=== PATIENT | male | born 1950 | race Caucasian/White ===

== ENCOUNTER 2018-06-25 09:21 | Emergency (ER) | payer MEDICARE, OTHER ==
[~2018-06-25] VITALS: Ht 182.9 cm; Wt 104.0 kg
[2018-06-25 09:32] VITALS: BP 146/76
[2018-06-25] MEDS ORDERED: ATORVASTATIN PO (10:00)
[2018-06-25] MEDS ORDERED: DIPHENHYDRAMINE 25 MG CAPSULE ONE (10:12)
[2018-06-25] MEDS ORDERED: DIPHENHYDRAMINE 25 MG CAPSULE PO ONE (11:00)
== END 2018-06-25 11:04 | disposition home or self-care (01) ==
LOC: ED 11:02
DX: T78.40XA Allergy, unspecified, initial encounter (principal); J98.01 Acute bronchospasm; R21 Rash and other nonspecific skin eruption; X58.XXXA Exposure to other specified factors, initial encounter
CPT/HCPCS: 99283; J7512; Q0163

== ENCOUNTER 2019-08-15 08:51 | Emergency (ER) | payer MEDICARE, OTHER ==
[~2019-08-15] VITALS: Ht 182.9 cm; Wt 104.1 kg
[~2019-08-15 08:51] MED LIST: ASPI81TA45 PO; ATOR20TA37 PO; ATORVASTATIN PO; BUTA-177 PO; DICL75TA3 PO; GABA300C PO; GUAI100L11 PO; IBUP-1223 PO; METH750T2 PO; TAMS-11 PO
[2019-08-15 08:52] VITALS: BP 146/87
--- NOTE | 2019-08-15 09:35 | NUR ---
PT SEEN AND EXAMINED BY EDPA, RN GIVEN DC ORDERS. THIS RN WENT TO DISCHARGE PT, PT WAS NOT IN ROOM, GOWN FOUND ON BED. RN UNABLE TO COMPLETE CLINICAL SCREEN AND DISCHARGE EDUCATION PT WALKED SELF TO DISCHARGE BEFORE RN ABLE TO COMPLETE THESE TASKS. EDPA NOTIFIED.
== END 2019-08-15 09:36 | disposition home or self-care (01) ==
LOC: ED 09:20
DX: J31.0 Chronic rhinitis (principal)
CPT/HCPCS: 99283

== ENCOUNTER → 2019-11-10 | Outpatient (CLI) | payer MEDICARE, OTHER ==
[~2019-11-10] MED LIST changes: +ACET-1600 PO; +OMEP40CA42 PO
[2019-11-10 13:21] LABS: BASOPHILS # (AUTO) 0.05 x10^3/uL (0-0.1); BASOPHILS % (AUTO) 1 % (0-1); EOSINOPHILS # (AUTO) 0.11 x10^3/uL (0-0.4); EOSINOPHILS % (AUTO) 2 % (1-7); LYMPHOCYTES # (AUTO) 1.94 x10^3/uL (1-3.4); LYMPHOCYTES % (AUTO) 33 % (22-44); MD NO; MEAN CORPUSCULAR HEMOGLOBIN 31.7 pg (27.5-34.5); MEAN CORPUSCULAR HGB CONC 33.5 g/dL (33.2-36.2); MEAN CORPUSCULAR VOLUME 94.7 fL (81-97); MEAN PLATELET VOLUME 8.3 fL (7.4-10.4); MONOCYTES # (AUTO) 0.42 x10^3/uL (0.2-0.8); MONOCYTES % (AUTO) 7 % (2-9); NEUTROPHILS # (AUTO) 3.29 x10^3/uL (1.8-6.8); NEUTROPHILS % (AUTO) 57 % (42-75); PLATELET COUNT 208 x10^3/uL (130-400); RED CELL DISTRIBUTION WIDTH 13.5 % (9.4-14.8)
[2019-11-10 13:24] LABS: MICROSCOPIC NOT IND
[2019-11-10 13:28] LABS: INTERNATIONAL NORMALIZED RATIO 1.07 (0.93-1.1); PROTHROMBIN TIME 11.3 Seconds (9.6-11.5)
[2019-11-10 13:31] LABS: ALANINE AMINOTRANSFERASE 25 U/L (12-78); ALBUMIN 3.9 g/dL (3.4-5.0); ANION GAP 6 mmol/L (5-15); CALCIUM 8.7 mg/dL (8.5-10.1); CHLORIDE 109 mmol/L (98-107); CREATININE 1.17 mg/dL (0.7-1.3)
[2019-11-10 13:33] LABS: ALKALINE PHOSPHATASE 100 U/L (45-117); BILIRUBIN,TOTAL 0.8 mg/dL (0.2-1.0); TOTAL PROTEIN 7.2 g/dL (6.4-8.2)
== END | disposition home or self-care (01) ==
LOC: STAR 12:07
PROVIDERS: ATTEND Neurological Surgery
DX: Z01.810 Encounter for preprocedural cardiovascular examination (principal); Z01.811 Encounter for preprocedural respiratory examination; Z01.812 Encounter for preprocedural laboratory examination; M43.06 Spondylolysis, lumbar region; R94.31 Abnormal electrocardiogram [ECG] [EKG]; R79.1 Abnormal coagulation profile; R82.90 Unspecified abnormal findings in urine
CPT/HCPCS: 36415; 80053; 81003; 85025; 85610; 85730; 93005; U0001-CS

== ENCOUNTER → 2019-11-10 | Outpatient (CLI) | payer MEDICARE, OTHER | END | disposition home or self-care (01) | LOC: RAD 13:46 | PROVIDERS: ATTEND Neurological Surgery | DX: M48.061 Spinal stenosis, lumbar region without neurogenic claudication (principal); M43.06 Spondylolysis, lumbar region | CPT/HCPCS: 72131 ==

== ENCOUNTER 2020-11-11 20:06 | Emergency (ER) | payer MEDICARE, OTHER ==
[~2020-11-11] VITALS: Ht 182.9 cm; Wt 106.8 kg
[~2020-11-11 20:06] MED LIST changes: +METH-640 PO; -METH750T2 PO; +METH750T87 PO; -OMEP40CA42 PO; +OMEP40CA8 PO; +OXYC5CAP2 PO
--- NOTE | 2020-11-11 20:23 | NUR ---
TASK RN: THIS IS A 70M THAT COMES IN POST L TOTAL KNEE (11/07/20). PT C/O INC SWELLING AND PAIN AND WARM TO TOUCH. PT RESTING ON GURNEY AT BEDSIDE
[2020-11-11] MEDS ORDERED: MORPHINE SULFATE 4 MG/ML, 1ML ONE (20:59)
[2020-11-11] MEDS ORDERED: ONDANSETRON 2MG/ML, 2ML ONE (20:59)
[2020-11-11] MEDS ORDERED: SODIUM CHLORIDE FLUSH 10ML SYR IVF ONE (21:00)
[2020-11-11] MEDS ORDERED: MORPHINE SULFATE 4 MG/ML, 1ML IVPush PRN (21:00)
[2020-11-11] MEDS ORDERED: ONDANSETRON 2MG/ML, 2ML IVPush ONE (21:00)
--- NOTE | 2020-11-11 21:05 | NUR ---
PIV PLACED, LABS DRAWN AND COLLECTED BY QUALITY CONTROL ENGINEER. MEDS ADMIN PER AUG. PT GOING TO US.
[2020-11-11 21:10] LABS: BASOPHILS % (AUTO) 1 % (0-1); EOSINOPHILS % (AUTO) 2 % (1-7); LYMPHOCYTES % (AUTO) 21 % (22-44); MEAN CORPUSCULAR HEMOGLOBIN 32.3 pg (27.5-34.5); MEAN CORPUSCULAR HGB CONC 34.4 g/dL (33.2-36.2); MEAN PLATELET VOLUME 7.7 fL (7.4-10.4); MONOCYTES % (AUTO) 11 % (2-9); NEUTROPHILS % (AUTO) 66 % (42-75); PLATELET COUNT 244 x10^3/uL (130-400); RED BLOOD COUNT 3.46 x10^6/uL (4.38-5.82); RED CELL DISTRIBUTION WIDTH 14.3 % (9.4-14.8)
[2020-11-11 21:12] LABS: MD NO
[2020-11-11 21:16] LABS: ANION GAP 5 mmol/L (5-15); CALCIUM 8.2 mg/dL (8.5-10.1); CHLORIDE 101 mmol/L (98-107)
[2020-11-11 21:20] LABS: ALANINE AMINOTRANSFERASE 21 U/L (12-78); ALKALINE PHOSPHATASE 79 U/L (45-117); BILIRUBIN,TOTAL 0.9 mg/dL (0.2-1.0); CREATININE 1.01 mg/dL (0.7-1.3); TOTAL PROTEIN 6.4 g/dL (6.4-8.2)
--- NOTE | 2020-11-11 22:03 | NUR ---
THIS RN AND [employer]INA SAHM AT BEDSIDE FOR WOUND CARE. [employer]INA REMOVED SOILED DRESSING FROM LEFT KNEE. INCISION WELL APPROXIMATED, AHSAN INTACT, NO S/SX OF INFECTION. NEW CLEAN DRESSING APPLIED AND SUPPLIES PROVIDED TO PT. PT STATES PAIN IS BETTER AFTER PAIN MEDS.
[2020-11-11 22:08] VITALS: BP 126/72
--- NOTE | 2020-11-11 22:14 | NUR ---
ALL RESULTS ARE BACK AT THIS TIME. CHART UP FOR RECHECK.
== END 2020-11-11 22:55 | disposition home or self-care (01) ==
LOC: ED 20:51
DX: L76.22 Postprocedural hemorrhage of skin and subcutaneous tissue following other procedure (principal); M25.562 Pain in left knee; M25.462 Effusion, left knee
CPT/HCPCS: 36415; 80053; 85025; 93971; 96374; 96375; 99284; J2270; J2405